=== PATIENT | male | born 1950 | race Caucasian/White ===

== ENCOUNTER 2017-05-31 14:01 | Emergency (ER) | payer MEDICARE, BC ==
--- NOTE | 2017-05-31 15:13 | EDM.PDOC ---
ED HPI GENERAL MEDICAL PROBLEM - General Stated Complaint: chest, discomfort Time Seen by Provider: 05/31/17 14:05 Source of Information: Reports: Patient History Limitations: Reports: No Limitations - History of Present Illness INITIAL COMMENTS - FREE TEXT/NARRATIVE: According to patient he has been having chest discomfort on and off for 5 weeks now. He claims he feels a chest pressure like symptoms on and off for 5 wks. About 1 wk ago he claims he did have some heart burn and did take some ant acids and it resolved. Yesterday he was having walking out in the cold and he felt chest pressure in the mid-chest and he immediately came back into the house. the feeling lasted for about 40 minutes before it resolved, he claims he had similar episode later in the evening. 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 He did come in to have it checked out. All these episodes are not asso with nausea, vomiting, chest pain, shortness of breath. Pt does not take any medications. He does ski out in the winter and he has done that several times in the past few weeks. He did make appointment to see but it is on 06/10/17 and hence came into emergency room for workup. - Related Data Allergies Allergy/AdvReac Type Severity Reaction Status Date / Time No Known Allergies Allergy Verified 05/01/14 13:58 Home Meds: Home Meds NK [No Known Home Meds] 05/01/14 [History] ED ROS GENERAL - Review of Systems Review Of Systems: See Below Constitutional: Denies: Fever, Chills, Diaphoresis, Weight Loss HEENT: Denies: Rhinitis, Sinus Problem, Throat Pain, Throat Swelling Respiratory: Denies: Shortness of Breath, Wheezing, Pleuritic Chest Pain, Cough , Sputum Cardiovascular: Reports: Chest Pain (chest pressure). Denies: Dyspnea on Exertion, Edema, Lightheadedness, Orthopnea, Syncope GI/Abdominal: Denies: Abdominal Pain, Anorexia, Constipation, Diarrhea, Nausea, Vomiting : Denies: Dysuria, Flank Pain, Frequency Musculoskeletal: Denies: Shoulder Pain, Joint Pain, Joint Swelling Skin: Denies: Jaundice, Pruritis, Rash Neurological: Denies: Dizziness, Headache, Numbness, Tingling Psychiatric: Denies: Agitation, Anxiety ED EXAM, GENERAL - Physical Exam Exam: See Below Exam Limited By: No Limitations General Appearance: Alert, WD/WN, No Apparent Distress Eye Exam: Bilateral Eye: EOMI, PERRL Ears: Normal External Exam, Normal Canal, Hearing Grossly Normal, Normal TMs Ear Exam: Bilateral Ear: Auricle Normal, Canal Normal, TM normal Nose: Normal Inspection, Normal Mucosa, No Blood Throat/Mouth: Normal Inspection, Normal Lips, Normal Teeth, Normal Gums, Normal Oropharynx, Normal Voice, No Airway Compromise Head: Atraumatic, Normocephalic Neck: Normal Inspection, Supple, Non-Tender, Full Range of Motion Respiratory/Chest: No Respiratory Distress, Lungs Clear, Normal Breath Sounds, No Accessory Muscle Use, Chest Non-Tender Cardiovascular: Normal Peripheral Pulses, Regular Rate, Rhythm, No Edema, No Gallop, No JVD, No Murmur, No Rub GI/Abdominal: Normal Bowel Sounds, Soft, Non-Tender, No Organomegaly, No Distention, No Abnormal Bruit, No Mass Extremities: Normal Inspection, Normal Range of Motion, Non-Tender, Normal Capillary Refill, No Pedal Edema Neurological: Alert, Oriented EKG INTERPRETATION EKG Date: 05/31/17 Rhythm: NSR [place]: Normal P-Wave: Present QRS: Normal ST-T: Normal QT: Normal Course - Vital Signs Text/Narrative:: Pt's vitals were stable. Also his EKG was in normal sinus rhythm. Pt had uneventful ER course. His CBC, CMP were normal. His PT and PTT were normal. Troponin is negative.Pt was reassured that he has not had AK. Considering his symptoms have been going on since yesterday, if he had any cardiac injury, it should have show up on his blood work. Pt does ski through the winter and is physically active. But considering his history of chest pressure when he goes out in the cold. I have advised patient to cover his face with a mask or muffler when is out door to prevent sudden exposure to cold air. Also advised to avoid excessive physical activity. He should get a stress test done next week , before he can start back on his exercises. Pt does agree and under stand the plan. Advised to stat taking one baby aspirin 81mg daily. - Orders/Labs/Meds Orders: Active Orders 24 hr Category Date Time Status EKG Documentation Completion [RC] ASDIRECTED Care 05/31/17 14:10 Active Chest 1V Frontal [CR] Stat Exams 05/31/17 Taken Labs: Laboratory Tests 05/31/17 05/31/17 05/31/17 Range/Units 14:10 14:10 14:10 WBC 4.8 (4.0-11.0) K/uL RBC 4.03 L (4.50-6.50) M/uL Hgb 13.3 (13.0-18.0) g/dL Hct 38.1 L (40.0-54.0) % MCV 95 (76-96) fL MCH 33.0 H (27.0-32.0) pg MCHC 34.9 (31.0-35.0) g/dL RDW 12.9 (11.0-16.0) % Plt Count 252 (150-400) K/uL MPV 9.6 (6.0-10.0) fL Neut % (Auto) 38.8 L (45.0-70.0) % Lymph % (Auto) 42.7 H (20.0-40.0) % [place] % (Auto) 13.7 H (3.0-10.0) % Eos % (Auto) 4.6 (1.0-5.0) % Baso % (Auto) 0.2 (0.0-0.5) % Neut # (Auto) 1.87 L (2.00-7.50) K/uL Lymph # (Auto) 2.06 (1.50-4.00) K/uL [place] # (Auto) 0.66 (0.20-0.80) K/uL Eos # (Auto) 0.22 (0.04-0.40) K/uL Baso # (Auto) 0.01 L (0.02-0.10) K/uL PT 9.9 (9.0-11.5) sec INR 1.0 (1.0-3.5) APTT 23.2 L (27.0-35.0) SECONDS Sodium 142 (136-145) mmol/L Potassium 4.3 (3.5-5.1) mmol/L Chloride 105 (98-107) mmol/L Carbon Dioxide 30.4 (21.0-32.0) mmol/L Anion Gap 10.9 (5.0-15.0) mmol/L BUN 18 (8-26) mg/dL Creatinine 0.97 (0.70-1.30) mg/dL Est Cr Clr Drug Dosing TNP Estimated GFR (MDRD) > 60 (>60) MLS/MIN BUN/Creatinine Ratio 18.6 (6-25) Glucose 99 (74-100) mg/dL Calcium 8.7 (8.5-10.1) mg/dL Total Bilirubin 0.4 (0.0-1.0) mg/dL AST 19 (15-37) U/L ALT 22 (12-78) U/L Alkaline Phosphatase 32 L (46-116) U/L Troponin I < 0.017 (0.000-0.060) ng/mL Total Protein 7.3 (6.4-8.2) g/dL Albumin 3.7 (3.4-5.0) g/dL Globulin 3.6 (2.2-4.2) g/dL Albumin/Globulin Ratio 1.0 (0.8-2.0) Departure - Departure Time of Disposition: 15:20 Disposition: Home, Self-Care 01 Condition: Good Clinical Impression: Chest pain - Discharge Information Referrals: PCP,None [Primary Care Provider] - - Problem List & Annotations (1) Chest pain SNOMED Code(s): 92608218 Code(s): R07.9 - CHEST PAIN, UNSPECIFIED Status: Acute - Problem List Review Problem List Initiated/Reviewed/Updated: Yes - My Orders Last 24 Hours: My Active Orders 05/31/17 Chest 1V Frontal [CR] Stat 05/31/17 14:10 EKG Documentation Completion [RC] ASDIRECTED - Assessment/Plan Last 24 Hours: My Active Orders 05/31/17 Chest 1V Frontal [CR] Stat 05/31/17 14:10 EKG Documentation Completion [RC] ASDIRECTED Assessment:: Chest pain Plan: Pt's vitals were stable. Also his EKG was in normal sinus rhythm. Pt had uneventful ER course. His CBC, CMP were normal. His PT and PTT were normal. Troponin is negative.Pt was reassured that he has not had AK. Considering his symptoms have been going on since yesterday, if he had any cardiac injury, it should have show up on his blood work. Pt does ski through the winter and is physically active. But considering his history of chest pressure when he goes out in the cold. I have advised patient to cover his face with a mask or muffler when is out door to prevent sudden exposure to cold air. Also advised to avoid excessive physical activity. He should get a stress test done next week , before he can start back on his exercises. Pt does agree and under stand the plan. Advised to stat taking one baby aspirin 81mg daily.
--- NOTE | 2017-06-01 03:47 | CR ---
DATE OF SERVICE: 05/31/2017 CLINICAL DATA: Chest pain AP PORTABLE CHEST The heart size is normal. The lungs are clear. No pneumothorax. No pleural effusions. No areas of consolidation. There is mild left convexity scoliosis of the mid and lower thoracic spine. IMPRESSION: No evidence of acute intrathoracic disease. [id number] [facility]
== END 2017-05-31 15:20 | disposition home or self-care (01) ==
LOC: LB.ED 14:01
DX: R07.89 Other chest pain (principal)
CPT/HCPCS: 36415; 71010; 80053; 84484; 85025; 85610; 85730; 93005; 99285; 99285-25

== ENCOUNTER 2019-09-03 16:04 | Emergency (ER) | payer MEDICARE ==
[2019-09-03 16:26] VITALS: BP 137/91; PULSE 72
--- NOTE | 2019-09-03 17:24 | EDM.PDOC ---
ED HPI GENERAL MEDICAL PROBLEM - General Chief Complaint: General Stated Complaint: FALL Time Seen by Provider: 09/03/19 16:10 Source of Information: Reports: Patient History Limitations: Reports: No Limitations - History of Present Illness INITIAL COMMENTS - FREE TEXT/NARRATIVE: Patient fell getting into skid steer and injured his shoulder just priro to arrival. Denies head trauma or LOC. Minimal neck stiffness. No numbness or tingling of extremities. Onset: Today Onset Date: 09/03/19 Onset Time: 15:00 Duration: Hour(s): (one hour) Location: Reports: Upper Extremity, Left (shoulder) Left Shoulder Pain Score (Numeric/FACES): 8 - Related Data Allergies Allergy/AdvReac Type Severity Reaction Status Date / Time No Known Allergies Allergy Verified 06/19/17 18:41 Home Meds: Home Meds NK [No Known Home Meds] 05/01/14 [History] Past Medical History HEENT History: Reports: None Cardiovascular History: Reports: None Respiratory History: Reports: None Gastrointestinal History: Reports: None Genitourinary History: Reports: None Musculoskeletal History: Reports: None - Past Surgical History HEENT Surgical History: Reports: None Cardiovascular Surgical History: Reports: None Respiratory Surgical History: Reports: None GI Surgical History: Reports: None Male Surgical History: Reports: None Endocrine Surgical History: Reports: None Musculoskeletal Surgical History: Reports: None Social & Family History - Family History Family Medical History: Noncontributory - Tobacco Use Smoking Status *Q: Former Smoker Years of Tobacco use: 10 Packs/Tins Daily: 0.5 Used Tobacco, but Quit: Yes Month/Year Tobacco Last Used: 08/30 Second Hand Smoke Exposure: Yes - Caffeine Use Caffeine Use: Reports: Coffee - Alcohol Use Days Per Week of Alcohol Use: 7 Number of Drinks Per Day: 1 Total Drinks Per Week: 7 - Recreational Drug Use Recreational Drug Use: No Review of Systems - Review of Systems Review Of Systems: See Below Constitutional: Reports: No Symptoms Respiratory: Reports: No Symptoms Cardiovascular: Reports: No Symptoms GI/Abdominal: Reports: No Symptoms Genitourinary: Reports: No Symptoms ED EXAM, GENERAL - Physical Exam Exam: See Below Exam Limited By: No Limitations General Appearance: Alert, WD/WN, Mild Distress Ears: Normal External Exam Nose: Normal Inspection, Normal Mucosa Throat/Mouth: Normal Lips, Normal Voice Head: Atraumatic, Normocephalic Neck: Normal Inspection, Supple, Non-Tender, Full Range of Motion Respiratory/Chest: No Respiratory Distress, Lungs Clear, Normal Breath Sounds, Chest Non-Tender Cardiovascular: Regular Rate, Rhythm GI/Abdominal: Normal Bowel Sounds Extremities: Normal Inspection, Limited Range of Motion (left shoulder with arm held at side bent at 90 degree angle) Neurological: Alert, Oriented, Normal Cognition, No Motor/Sensory Deficits Psychiatric: Normal Affect, Normal Mood Skin Exam: Warm, Intact Lymphatic: No Adenopathy Course - Vital Signs Last Recorded V/S: Last Vital Signs Temp 97.7 F 09/03/19 16:23 Pulse 72 09/03/19 16:23 Resp 18 09/03/19 16:23 BP 137/91 H 09/03/19 16:23 Pulse Ox 96 09/03/19 16:23 - Orders/Labs/Meds Orders: Active Orders 24 hr Category Date Time Status AC Joint wo Weight Bi [CR] Stat Exams 09/03/19 16:38 Taken Shoulder Comp Lt [CR] Stat Exams 09/03/19 16:17 Taken Departure - Departure Time of Disposition: 17:00 Disposition: Home, Self-Care 01 Clinical Impression: AC separation, type 2 - Discharge Information *PRESCRIPTION DRUG MONITORING PROGRAM REVIEWED*: Not Applicable *COPY OF PRESCRIPTION DRUG MONITORING REPORT IN PATIENT RICH: Not Applicable Instructions: Acromioclavicular Separation Referrals: PCP,None [Primary Care Provider] - Forms: ED Department Discharge Care Plan Goals: Wear sling 2 to 4 weeks, Range of motion exercises including the pendelum, no heavy lifting for 6 weeks or until pain free, return to normal activity in 3 to 4 weeks. may take Ibuprofen 400mg 2 to 3 times daily. return to work in 6 weeks if tolerated. Return to hospital or clinic with any questions or concerns. Sepsis Event Note - Evaluation Sepsis Screening Result: No Definite Risk - Focused Exam Vital Signs: Vital Signs Temp Pulse Resp BP Pulse Ox 09/03/19 16:23 97.7 F 72 18 137/91 H 96 Date Exam was Performed: 09/03/19 Time Exam was Performed: 17:25 - My Orders Last 24 Hours: My Active Orders 09/03/19 16:17 Shoulder Comp Lt [CR] Stat 09/03/19 16:38 AC Joint wo Weight Bi [CR] Stat - Assessment/Plan Last 24 Hours: My Active Orders 09/03/19 16:17 Shoulder Comp Lt [CR] Stat 09/03/19 16:38 AC Joint wo Weight Bi [CR] Stat
--- NOTE | 2019-09-04 16:05 | CR ---
CLINICAL DATA: Shoulder pain. LEFT SHOULDER, 03 SEPTEMBER 2019: Comparison is made to a prior exam dated 08 March 2019. 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 There is mild elevation of the left clavicle with respect to the acromion process. This was not present on the prior exam. Findings are consistent with a mild AC separation. The coracoclavicular ligament does appear to be intact. No acute fracture. No lytic or blastic bone lesions. Job: [id number] [facility]
--- NOTE | 2019-09-04 16:07 | CR ---
CLINICAL DATA: Fall onto shoulder. 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 There is elevation of the left clavicle with respect to the acromion process, consistent with an AC separation. The coracoclavicular ligament does appear to be intact. No fractures. Job: [id number] [facility]
== END 2019-09-03 17:12 | disposition home or self-care (01) ==
LOC: LB.ED 16:04
DX: S43.102A Unspecified dislocation of left acromioclavicular joint, initial encounter (principal); Z87.891 Personal history of nicotine dependence; W01.0XXA Fall on same level from slipping, tripping and stumbling without subsequent striking against object, initial encounter
CPT/HCPCS: 73030-LT; 73050; 99283; 99283-25